=== PATIENT | male | born 1970 | race American Indian/Alaskan Native ===

== ENCOUNTER 2018-02-03 03:05 | Emergency (ER) | payer SELFPAY ==
[2018-02-03 03:19] VITALS: BP 125/78
--- NOTE | 2018-02-03 03:53 | Emergency Department Report ---
ED General Adult HPI - General Chief complaint: Earache Stated complaint: RIGHT EAR PAIN Time Seen by Provider: 02/03/18 03:33 Source: patient Mode of arrival: Ambulatory Limitations: No Limitations - History of Present Illness Initial comments: Patient for 7-year-old -[place] male who presents with an earring stuck in his right ear lobe patient with a yellow metallic ring with screw on back partially embedded in the right posterior lobe 2 days pain swelling minimal bleeding states he was unable to get off home despite multiple tests Onset/Timin -: days(s) Severity scale (0 -10): 4 Quality: sharp, other Consistency: constant Improves with: none Worsens with: movement Treatments Prior to Arrival: none - Related Data Previous Rx's Medication Instructions Recorded Last Taken Type HYDROcodone/ACETAMINOPHEN [[place] 1 - 2 each PO TID PRN #15 tablet 09/30/13 Unknown Rx 5/325 Tablet] Ibuprofen [Motrin] 800 mg PO TID PRN #15 tablet 09/30/13 Unknown Rx Penicillin Vk [Veetids TAB] 500 mg PO QID #28 tablet 09/30/13 Unknown Rx Neomycin/Bacitracin/Polymyxinb 1 applicatio TP BID 14 Days #1 tube 02/03/18 Unknown Rx [Neosporin Antibiotic Ointment] Allergies Allergy/AdvReac Type Severity Reaction Status Date / Time No Known Allergies Allergy Unverified 09/30/13 10:22 ED Review of Systems ROS: Stated complaint: RIGHT EAR PAIN Other details as noted in HPI Constitutional: denies: chills, fever Eyes: denies: eye pain, eye discharge, vision change ENT: ear pain (foreignbody right earlobe ) Respiratory: denies: cough, shortness of breath, wheezing Cardiovascular: denies: chest pain, palpitations Endocrine: no symptoms reported Gastrointestinal: denies: abdominal pain, nausea, diarrhea Genitourinary: denies: urgency, dysuria Musculoskeletal: denies: back pain, joint swelling, arthralgia Skin: denies: rash, lesions Neurological: denies: headache, weakness, paresthesias Psychiatric: denies: anxiety, depression Hematological/Lymphatic: denies: easy bleeding, easy bruising ED Past Medical Hx - Past Medical History Previous Medical History?: No - Surgical History Past Surgical History?: Yes Additional Surgical History: left arm - Social History Smoking Status: Never Smoker Substance Use Type: Marijuana - Medications Home Medications: Home Medications Medication Instructions Recorded Confirmed Last Taken Type HYDROcodone/ACETAMINOPHEN [[place] 1 - 2 each PO TID PRN #15 tablet 09/30/13 Unknown Rx 5/325 Tablet] Ibuprofen [Motrin] 800 mg PO TID PRN #15 tablet 09/30/13 Unknown Rx Penicillin Vk [Veetids TAB] 500 mg PO QID #28 tablet 09/30/13 Unknown Rx Neomycin/Bacitracin/Polymyxinb 1 applicatio TP BID 14 Days #1 tube 02/03/18 Unknown Rx [Neosporin Antibiotic Ointment] ED Physical Exam - General Limitations: No Limitations General appearance: alert, in no apparent distress - Head Head exam: Present: atraumatic, normocephalic - Eye Eye exam: Present: normal appearance - ENT ENT exam: Present: mucous membranes moist - Expanded ENT Exam Expanded Ear exam: Present: other (earing embedded right ear lobe mild erythema pain mild bleeding ) - Neck Neck exam: Present: normal inspection - Respiratory Respiratory exam: Present: normal lung sounds bilaterally. Absent: respiratory distress - Cardiovascular Cardiovascular Exam: Present: regular rate, normal rhythm. Absent: systolic murmur, diastolic murmur, rubs, gallop - GI/Abdominal GI/Abdominal exam: Present: soft, normal bowel sounds - Rectal Rectal exam: Present: deferred - Extremities Exam Extremities exam: Present: normal inspection - Back Exam Back exam: Present: normal inspection - Neurological Exam Neurological exam: Present: alert, oriented X3 - Psychiatric Psychiatric exam: Present: normal affect, normal mood - Skin Skin exam: Present: warm, dry, intact, normal color. Absent: rash ED Course Vital Signs 02/03/18 03:17 Temperature 97.7 F Pulse Rate 61 Respiratory 16 Rate Blood Pressure 125/78 O2 Sat by Pulse 97 Oximetry - Foreign Body Removal Ear Location: ear canal (R) (righ ear lobe earing) Foreign Body Suspected: other (right earlobe earing) Foreign Body Removed: yes Foreign Body Removal Technique: other (forcepts) Tympanic Membrane Intact: Yes Patient Tolerated Procedure: well Complications: none Additional Comments: all bleedding controlled 2x2 dressing applied pt given wound card instructions verbalized understanding of same. ED Medical Decision Making - Medical Decision Making right earlobe earing removed intact, irrigated wtih 10cc sterile saline, cleaned , with betadine solution, all bleeding controlled, x 2x2 dressing placed, pt given wound care instructions verbalized understanding of same. pt tolerated wtih minimal distress, wlll follow up wit pcp in 2-3 days. Critical care attestation.: If time is entered above; I have spent that time in minutes in the direct care of this critically ill patient, excluding procedure time. ED Disposition Clinical Impression: Acute foreign body of right earlobe Qualifiers: Encounter type: initial encounter Qualified Code(s): T16.1XXA - Foreign body in right ear, initial encounter Disposition: TO HOME OR SELFCARE Is pt being admited?: No Does the pt Need Aspirin: No Condition: Good Instructions: Wound Infection (ED) Prescriptions: Neomycin/Bacitracin/Polymyxinb [Neosporin Antibiotic Ointment] 1 applicatio TP BID 14 Days #1 tube Referrals: PRIMARY CARE, [Primary Care Provider] - 3-5 Days Forms: Work/School Release Form(ED) Time of Disposition: 04:01
== END 2018-02-03 04:01 | disposition home or self-care (01) ==
LOC: ED 03:05
DX: T16.1XXA Foreign body in right ear, initial encounter (principal); F12.90 Cannabis use, unspecified, uncomplicated; W45.8XXA Other foreign body or object entering through skin, initial encounter; Y93.89 Activity, other specified; Y99.8 Other external cause status; Y92.89 Other specified places as the place of occurrence of the external cause
CPT/HCPCS: 99282